=== PATIENT | female | born 1950 | race Native Hawaiian/Other Pacific Islander ===

== ENCOUNTER 2022-07-05 22:00 | Emergency (ER) | payer OTHER ==
[~2022-07-05] VITALS: Ht 160 cm; Wt 57.6 kg
[~2022-07-05 22:00] MED LIST: 904272561 PO
[2022-07-05 22:37] LABS: PLATELET COUNT 300 K/uL (152-353)
[2022-07-05 22:52] LABS: POTASSIUM 3.8 mmol/L (3.6-5.2)
[2022-07-05 23:30] VITALS: BP 135/77; TEMP 98.5
[2022-07-06] MEDS ORDERED: LIPITOR40 MG PO (09:24)
[2022-07-06] MEDS ORDERED: DONE5TAB PO (09:25)
[2022-07-06] MEDS ORDERED: ELIQUIS5 MG PO (09:25)
[2022-07-06] MEDS ORDERED: BONIVA150 MG PO (09:26)
[2022-07-06] MEDS ORDERED: KEPPRA750 MG PO (09:27)
[2022-07-06] MEDS ORDERED: METO25TA4 PO (09:28)
[2022-07-06] MEDS ORDERED: LEVO-T25 MCG PO (09:28)
[2022-07-06] MEDS ORDERED: QUET25TA2 PO ×2 (09:29→09:30)
[2022-07-06] MEDS ORDERED: VITAMIN B650 MG PO (09:37)
[2022-07-06] MEDS ORDERED: HALO5INJ3 IM (09:38)
== END 2022-07-05 23:30 | disposition still patient (30) ==
LOC: ED 22:00
PROVIDERS: Emergency Medicine
DX: F03.911 Unspecified dementia, unspecified severity, with agitation (principal); Z11.52 Encounter for screening for COVID-19; Z04.6 Encounter for general psychiatric examination, requested by authority
CPT/HCPCS: 36415; 80053; 85027; 87635; 93005; 99283; U0003